=== PATIENT | male | born 1955 | race Caucasian/White ===

== ENCOUNTER → 2017-09-15 | Outpatient (CLI) | payer OTHER ==
[~2017-09-15] MED LIST: ADULT LOW DOSE81 MG PO; ALBUTEROL2.5 MG/0.5 INH; ASPIRIN325 PO; COREG3.125 MG PO; CYMBALTA30 MG PO; CYMBALTA60 MG PO; METHADONE HCL 110 M1 PO; METHADOSE10 M1 PO; METHADOSE10 MG PO; MOM PO; NEURONTIN 300300 M1 PO; NIACINOL500 MG PO; NORTRIPTYLINE H25 M3 PO; OXYCODONE HCL 55 MG PO; ROXICODONE15 M1 PO; ROXICODONE5 MG PO; SYMBICORT160 MCG/4. INH; TRILEPTAL150 MG PO; XANAX 0.25 MG0.25 MG PO; breathing treatment
--- NOTE | 2017-09-17 08:15 | PAINCON ---
[address] [address] PAIN MANAGEMENT CONSULTATION Name: RAISSA RANGEL [id number] Admission: 09/15/17 Attend Phys: Sukhi Whitman Discharge: Date of : 55 Report #: [id number] THIS REPORT FOR: //name// CC: Chris Millard The patient is a 62-year-old gentleman, priorly seen in pain clinic for neuropathic pain, status post left below knee amputation, being treated for chronic phantom sensation. He was last seen in the pain clinic on 07/21/2017, continued on baseline medication, increased methadone from 10 t.i.d. to q.i.d. We counseled regarding smoking cessation. Continue on co-analgesics including Cymbalta 30 mg 1 a day and gabapentin 300 mg 4 a day (1 in the morning, 1 at noon and 2 at night). He returns to pain clinic today noting medications have been providing sufficient analgesia to participate in activities of daily living. 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 We did check those medications. The only interaction is possible increased sedation with Seroquel. We discussed this today. Otherwise, the patient notes pain is a 2 on VAS, primarily phantom sensation, throbbing pain in the left lower extremity. No new complaints. PHYSICAL EXAMINATION: Shows 5 feet 9 inches, 198 pounds gentleman, BMI is 29.4 kilograms per meter squared. Blood pressure 154/81, pulse 112, respirations 16. Rises from chair using armrest, modestly antalgic gait, although he is getting better with his prosthesis. Some diffuse lumbar tenderness, no discrete trigger points noted. Stump is intact. We reviewed the fact that opiate medications are being used to provide analgesia adequate to support activities of daily living, not attempting to achieve a specific pain score on the 0-10 Visual Analog Scale. The current opiate medications are providing sufficient analgesia to allow the patient to participate in activities of daily living. The patient is not exhibiting any aberrant behavior suggestive of drug diversion. The patient is not having any adverse reactions to medications. The patient is not suffering from daytime somnolence or mental acuity changes. The patient is managing opiate-induced constipation with appropriate hllx-xcc-tjjbkkq agents and dietary considerations. The patient was counseled on concern for caution with operating a motor vehicle while using opiate medications. A physical exam was performed and the patient's functional status was evaluated. All patients with back pain were advised against the bed rest greater than 4 days and were advised to return to normal activities. Pain score assessment was noted and the treatment plan was reviewed with the patient. All current medications, both prescribed and OTC [place] [address] PAIN MANAGEMENT CONSULTATION Name: CLAIRERAISSA W Room: [facility]#: [id number] Admission: 09/15/17 Attend Phys: Sukhi Whitman Discharge: Date of : 55 Report #: [id number] electronic medical record. Tobacco screening was accomplished and smoking cessation was advised when indicated. BMI was noted and diet/exercise modification was recommended for all patients following outside normal parameters. I reviewed with the patient today their responsibilities to safeguard prescription medications, reviewed their responsibility to utilize medications only as prescribed by the physician. They are to seek and receive pain medications only from 1 physician group ( [facility]). They are to use 1 pharmacy and keep the clinic informed if they change pharmacies. Their responsibilities include making followup visits in a timely fashion and to avoid abrupt discontinuation of medication usage. Their responsibilities further include bringing their medications (bottles from the pharmacy with residual pills) to the visit for possible confirmation of pill counts and the patient understands it is their responsibility to submit to random drug screens to ensure both that the medications prescribed are present, and that no other controlled substances are present. All prescriptions provided today were generated electronically. ASSESSMENT: Chronic neuropathic pain, status post left below knee amputation, stable on baseline high risk complex medicines. RECOMMENDATIONS: 1. Buccal swab today. No aberrant behavior suggestive of drug diversion, simply complying with our opiate consent to treat contract. 2. Continue baseline medication and can change, methadone 10 mg q.i.d., I have taken the liberty of writing for 2 months of current medication. No other prescriptions were needed today. Follow up in 2 months for reevaluation, earlier if needed. <ELECTRONICALLY SIGNED> By: Marcel Millard DO 09/17/17 0815 0825 [id number] Millard DO /nt
== END ==
LOC: M.PC 02:03
DX: M79.2 Neuralgia and neuritis, unspecified (principal); Z89.519 Acquired absence of unspecified leg below knee; Z79.899 Other long term (current) drug therapy

== ENCOUNTER → 2017-11-10 | Outpatient (CLI) | payer OTHER ==
--- NOTE | 2017-11-11 10:21 | PAINCON ---
[address] [address] PAIN MANAGEMENT CONSULTATION Name: RAISSA RANGEL Room: [facility] Lambert#: [id number] Admission: 11/10/17 Attend Phys: Sukhi Whitman Discharge: Date of : 55 Report #: [id number] THIS REPORT FOR: //name// CC: Chris Millard DATE OF SERVICE: 11/10/2017 The patient is a 62-year-old gentleman being treated for neuropathic pain status post left below-knee amputation, chronic pain syndrome requiring complex medication management. Last seen in the pain clinic on 09/15/2017, continued on methadone 10 mg 4 times a day, Cymbalta 30 mg daily, gabapentin 300 mg 1 in the morning, 1 at noon, and 2 at night. The patient has increased this gradually up to about 5 a day. The patient returns to pain clinic today. He continued to smoke, was counseled regarding same. He is complaining that his gabapentin is a "2-3" prescription with higher cost. He did state that he looked at the formulary and noted that clonidine was listed "as exact same medication." I assured him that clonidine was absolutely not the comparable agent to gabapentin, gabapentin is a calcium channel membrane stabilizing agent. It is an anticonvulsant agent that we use for neuropathic pain. Clonazepam, however, is a benzodiazepine, acts on DAVID receptors and while it can lower seizure threshold but had absolutely nothing to do with neuropathic pain. I told him that would be very loathe to use concurrent benzodiazepines and opiate analgesics. We did again point out that nicotine use exacerbates atherosclerotic peripheral vascular disease as well as chronic axial back pain. Strongly recommend smoking cessation. PHYSICAL EXAMINATION: Shows a 62-year-old gentleman, BMI is approximately 29 kilograms per meter squared. Blood pressure 141/76, pulse 104, respirations 18. He is wearing a well-fitting left lower extremity prosthesis. Rises from chair using armrest. Has some subjective axial pain and some stump pain. Fortunately, no significant neuropathic pain at this time. Gait is modestly antalgic, generally tandem. We reviewed the fact that opiate medications are being used to provide analgesia adequate to support activities of daily living, not attempting to achieve a specific pain score on the 0-10 Visual Analog Scale. The current opiate medications are providing sufficient analgesia to allow the patient to participate in activities of daily living. The patient is not exhibiting any aberrant behavior suggestive of drug diversion. The patient is [place] [address] PAIN MANAGEMENT CONSULTATION Name: RAISSA RANGEL Sahil Room: [facility]#: [id number] Admission: 11/10/17 Attend Phys: Sukhi Whitman Discharge: Date of : 55 Report #: [id number] adverse reactions to medications. The patient is not suffering from daytime somnolence or mental acuity changes. The patient is managing opiate-induced constipation with appropriate lbwi-nlu-dteqycv agents and dietary considerations. The patient was counseled on concern for caution with operating a motor vehicle while using opiate medications. A physical exam was performed and the patient's functional status was evaluated. All patients with back pain were advised against the bed rest greater than 4 days and were advised to return to normal activities. Pain score assessment was noted and the treatment plan was reviewed with the patient. All current medications, both prescribed and OTC were reviewed and reconciled on the electronic medical record. Tobacco screening was accomplished and smoking cessation was advised when indicated. BMI was noted and diet/exercise modification was recommended for all patients following outside normal parameters. I reviewed with the patient today their responsibilities to safeguard prescription medications, reviewed their responsibility to utilize medications only as prescribed by the physician. They are to seek and receive pain medications only from 1 physician group ( [facility]). They are to use 1 pharmacy and keep the clinic informed if they change pharmacies. Their responsibilities include making followup visits in a timely fashion and to avoid abrupt discontinuation of medication usage. Their responsibilities further include bringing their medications (bottles from the pharmacy with residual pills) to the visit for possible confirmation of pill counts and the patient understands it is their responsibility to submit to random drug screens to ensure both that the medications prescribed are present, and that no other controlled substances are present. All prescriptions provided today were generated electronically. ASSESSMENT: Neuropathic pain, status post left below knee amputation, requiring complex medication management. RECOMMENDATIONS: 1. Smoking cessation. 2. Methadone 10 mg up to 4 a day, taken the liberty of writing for 2 months current medication. Continue Cymbalta 30 mg daily. Given cost concerns, I suggest the patient try and start to wean gabapentin, have taken the liberty of writing for 300 mg tablets, dispensed 120 tablets, currently takes 1 in the morning, 1 in noon and 2 at night. Suggest he drop 1 tablet every 5 days. If pain becomes problematic, we will go back to the last therapeutic dose. If, however, he is able to wean off of gabapentin, we will simply continue methadone and Cymbalta. The patient was discharged in good and stable condition. Follow up in 2 months [place] [address] PAIN MANAGEMENT CONSULTATION Name: RAISSA RANGEL Room: [facility]#: [id number] Admission: 11/10/17 Attend Phys: Sukhi Whitman Discharge: Date of : 55 Report #: [id number] Patient did return to the pain clinic later in the day; it turns out that while he has consistently told me that he was taking his methadone four times a day, he has in fact been taking it "as needed" meaning that he has been utilizing MORE than four tablet per day; in fact he has been asking for his Rx to be released "early" per the pharmacist now the last FIVE times. Today he tells me that he is out of methadone and that the pharmacy will not release the Rx for two days. I strongly admonished the patient that he MUST take the medications as directed! I did provide the patient with an Rx for clonidine, 0.1 mg to be taken bid for two days to help attenuate any opiate withdrawal symptoms. Going forward, I will provide the patient with #112 methadone tablets for exactly 4 weeks, not allowing patient to have any latitude for more aggressive use of this agent. <ELECTRONICALLY SIGNED> By: Marcel Millard DO 11/11/17 1021 1243 [id number] Millard DO /nt
== END ==
LOC: M.PC 03:38
DX: G89.4 Chronic pain syndrome (principal); M79.2 Neuralgia and neuritis, unspecified; Z79.899 Other long term (current) drug therapy; Z87.891 Personal history of nicotine dependence; Z89.512 Acquired absence of left leg below knee

== ENCOUNTER → 2018-01-05 | Outpatient (CLI) | payer OTHER ==
--- NOTE | 2018-01-06 09:37 | PAINCON ---
[address] [address] PAIN MANAGEMENT CONSULTATION Name: RAISSA RANGEL Room: [facility] CT Lambert#: [id number] Admission: 01/05/18 Attend Phys: Sukhi Whitman Discharge: Date of : 55 Report #: [id number] THIS REPORT FOR: //name// CC: Chris Millard DATE OF SERVICE: 01/05/2018 The patient is a 62-year-old gentleman treated for phantom limb pain status post left below knee amputation, neuropathic pain requiring complex medication management. Last seen in the pain clinic 11/10/2017. The patient returns to pain clinic today. We had a moderately prolonged visit today reviewing concerning issues. Last visit after the patient left, I was informed by the pharmacist that he has requested early release of his medications for the last 5 times. While he told me he was taking his medication regularly q.i.d., it turns out he was actually using his methadone more as a p.r.n. medication and was actually running out on occasion. The patient does return to the pain clinic today. Was seen for approximately a 25-minute visit, greater than 50% of time spent reviewing therapeutic issues, concerns and discussion about opiate-induced hyperalgesia, constipation and concerns for supratherapeutic dosing, the patient currently is taking 40 mg of methadone roughly equivalent to 160 mg morphine at a minimum. The patient does note he has been cautious to take his medication not more than q.i.d. and in fact brings with him today his pill jar for a pill count and he is appropriately timely. PHYSICAL EXAMINATION: Reveals a 5-foot 9-inch, 194-pound gentleman, BMI is 28.5 kilograms per meter squared. Blood pressure 158/84, pulse 98, respirations are 16. Alert and oriented to person, place and time, judged to be a reasonable historian, wearing a well-fitting prosthesis. Gait is generally tandem. Rates his pain a 3 on VAS. He does report that he had fallen 2 weeks ago. States he simply tripped over a rug in their apartment. Physical exam further notes he is alert and oriented to person, place and time, judged to be a reasonable historian. Cervical range of motion is good. Upper extremity strength is preserved. Some diffuse back tenderness, no discrete trigger point was noted. The patient is currently taking Cymbalta 30 mg a day. His notes that he does get anxious without this medication. He has continued to take gabapentin 300 mg. We talked about weaning this due to cost concerns, but the patient has continued taking 1 tablet in the morning, 1 at noon, and 2 at night. He thinks it [place] [address] PAIN MANAGEMENT CONSULTATION Name: RAISSA RANGEL Room: [facility]#: [id number] Admission: 01/05/18 Attend Phys: Sukhi Whitman Discharge: Date of : 55 Report #: [id number] We talked at length today about phantom pain, opiate-induced hyperalgesia and concern for aggressive titration of opiate. I pointed out that we will try and wean the patient down to the CDC recommendation of 90 mg or less morphine equivalent. To this end, we have elected to decrease methadone from q.i.d. to t.i.d. With a 25% decrease in opiate load, I do not think he should have opiate-induced withdrawal symptoms. We can phone in clonidine 0.1 at bedtime if he is having any anxiety, tachycardia, diaphoresis. I have taken the liberty of writing 2 months of this medication, follow up at that time. We will continue Cymbalta and gabapentin unchanged. Next visit, we may consider dropping to 25 mg of methadone. I did inform the patient that I will be leaving in March. We will endeavor to find another willing provider to manage his chronic pain concerns. Today, a buccal swab was accomplished. It should be positive for methadone as the sole opiate. The patient was counseled again at great lengths about smoking cessation. We talked about the fact that it can exacerbate chronic pain issues, may have been contributory to his atherosclerotic peripheral vascular disease and amputation. Is indicative of habituative personality as well. Discharged in good and stable condition after a 25+ minute visit. <ELECTRONICALLY SIGNED> By: Marecl Millard DO 01/06/18 0937 1400 190Marcel Millard DO /nt
== END ==
LOC: M.PC 04:39
DX: M79.2 Neuralgia and neuritis, unspecified (principal); Z89.512 Acquired absence of left leg below knee; Z79.899 Other long term (current) drug therapy

== ENCOUNTER → 2018-03-09 | Outpatient (CLI) | payer OTHER ==
--- NOTE | 2018-03-10 07:27 | PAINCON ---
[address] [address] PAIN MANAGEMENT CONSULTATION Name: RAISSA RANGEL Room: [facility] Petra#: [id number] Admission: 03/09/18 Attend Phys: Sukhi Whitman Discharge: Date of : 55 Report #: [id number] THIS REPORT FOR: //name// CC: Chris Leos DATE OF SERVICE: 03/09/2018 The patient is a 62-year-old gentleman being treated for left lower extremity neuropathic pain, status post left below knee amputation, phantom limb sensation requiring complex medication management. The patient returns to pain clinic today, last visit was 01/05/2018. Random drug screen at that time was positive for methadone, gabapentin and nicotine. No aberrant findings were noted. We started the patient on Cymbalta, which has helped some with some chronic situational anxiety and chronic pain. He uses gabapentin 300 mg 1 in the morning, 1 at noon and 2 at night (1200 mg daily dose) with some efficacy of neuropathic pain. We had weaned methadone from 4 to 3 a day, 10 mg 3 times a day with no p.r.n. medication. The patient notes that he is doing well with current medication. Rates his pain a 2-3 on a VAS. States fairly sedentary life. He does have significant COPD, shortness of breath with even getting up to make the bed. He still continues to smoke and was counseled regarding same. PHYSICAL EXAMINATION: Otherwise unchanged, 5 feet 9 inches, approximately 195 pounds gentleman, BMI is around 28 kilograms per meter squared. Blood pressure 141/75, pulse 92, respirations 16. Cranial nerves 2-12 are grossly intact. Pupils equal, react to light and accommodation, somewhat pinpoint. Extraocular muscles are intact. He is alert and oriented to person, place and time, judged to be a reasonable historian. No nystagmus is noted with lateral gaze deviation. Rises from chair using armrest. Gait is fairly tandem. Considering the left lower extremity prosthesis, he uses a cane in his right hand. Balance is good. Walking forward. He does have poor proprioception and balance if he tries to take a step backwards. He has had some falls when stepping backwards. The patient is having no problems with daytime somnolence or mental acuity changes. Again, he is fairly sedentary, primarily because of COPD. I think he has some social isolation. He states they have one car and his takes it to work and he is "stuck in the apartment." He states he does struggle a little with constipation, he states he has since he was a child. Today, we had a prolonged talk about using stool softeners, I have [place] [address] PAIN MANAGEMENT CONSULTATION Name: RAISSA RANGEL Room: [facility]#: [id number] Admission: 03/09/18 Attend Phys: Sukhi Whitman Discharge: Date of : 55 Report #: [id number] before. He uses milk of magnesia about every 3-4 days. I suggested that using a bowel stimulant rather than a daily stool softener/bulk-forming agent in patients who use chronic opiates is somewhat misguided. Concerned that he is "training" his bowel to have peristalsis only when stimulated with a properistaltic agent such as milk of magnesia. I again discussed at length opiate-induced constipation and need to use a bulk-forming agent to try and keep more fluid in the stool given the prolonged transit time caused by the opiate. Ultimately, I think the patient understood this. I did discuss today that I will be leaving the practice area. Unfortunately, Dr. Dean cannot see all of my patients. I will ask him to follow up with Dr. Mariano. He has been stable on methadone 10 mg t.i.d. for quite some time. If Dr. Mariano is comfortable writing for this agent, that would certainly be a reasonable medication for him to continue. We could see him perhaps once a year simply to evaluate appropriateness of current medication. If, however, Dr. Mariano is uncomfortable with this medication, we would appreciate his input in helping to refer the patient to another pain physician managing chronic pain concerns. Thank you for allowing me to participate in this patient's care. He was seen for prolonged visit today, approximately 25 minutes spent counseling the patient, reviewing opiate-induced constipation issues, discussing need for smoking cessation, encouraging daily activity including even a short walk in the morning hours before the heat of day. <ELECTRONICALLY SIGNED> By: Marcel Millard DO 03/10/18 0727 1336 204Marcel Millard DO /nt
== END ==
LOC: M.PC 03-02 10:10
DX: M79.2 Neuralgia and neuritis, unspecified (principal); G89.29 Other chronic pain; F41.9 Anxiety disorder, unspecified; Z79.899 Other long term (current) drug therapy

== ENCOUNTER → 2018-05-24 | Outpatient (CLI) | payer OTHER | LOC: M.ULTRA 10:30 | DX: B17.10 Acute hepatitis C without hepatic coma (principal); R79.89 Other specified abnormal findings of blood chemistry; R74.8 Abnormal levels of other serum enzymes; J44.9 Chronic obstructive pulmonary disease, unspecified ==

== ENCOUNTER 2018-08-12 15:06 | Emergency (ER) | payer OTHER ==
[~2018-08-12] VITALS: Ht 172.7 cm; Wt 90.7 kg
[2018-08-12] MEDS ORDERED: TRAZODONE HCL50 MG PO (15:19)
[2018-08-12 15:37] LABS: ABSOLUTE BASOPHILS 0.1 thou/uL (0.0-0.2); ABSOLUTE EOSINOPHILS 0.1 thou/uL (0.0-0.7); ABSOLUTE MONOCYTES 0.9 thou/uL (0.0-1.2); ABSOLUTE NEUTROPHILS 5.7 thou/uL (1.6-8.1); BASOPHILS 0.9 %; EOSINOPHILS 0.9 %; HEMATOCRIT 51.3 % (42.0-52.0); LYMPHOCYTES 30.3 %; MCH 31.7 pg (26.0-34.0); MCHC 33.2 g/dL (28.0-37.0); MCV 95.6 fL (80.0-100.0); MONOCYTES 9.2 %; MPV 10.6 fl. (7.2-11.1); NUCLEATED RBCS 0 /100WBC; PLATELET COUNT* 179 thou/uL (150-400); POLYS 58.7 %; RBC 5.36 mil/uL (4.50-6.00); RDW-CV 13.4 % (10.5-14.5); WBC 9.7 thou/uL (4.0-11.0)
[2018-08-12 15:47] LABS: ANION GAP 8 mmol/L (7-16); BUN 8 mg/dL (7-18); CALCIUM 8.9 mg/dL (8.5-10.1); CHLORIDE 105 mmol/L (98-107); CO2 29 mmol/L (21-32); CREATININE 0.9 mg/dL (0.6-1.3); GLUCOSE 136 mg/dL (70-99); POTASSIUM 3.7 mmol/L (3.5-5.1); SODIUM 142 mmol/L (136-145)
[2018-08-12 16:02] LABS: ALBUMIN 3.7 g/dL (3.4-5.0); ALKALINE PHOSPHATASE 59 U/L (46-116); SGOT 70 U/L (15-37); SGPT 109 U/L (30-65); TOTAL BILIRUBIN 0.6 mg/dL (<0.1-1.0); TOTAL PROTEIN 7.4 g/dL (6.4-8.2); TROPONIN-I LEVEL <0.06 ng/mL (<0.06)
[2018-08-12 17:11] LABS: URINE BILIRUBIN NEGATIVE (Negative); URINE BLOOD NEGATIVE (Negative); URINE CLARITY CLEAR; URINE COLOR YELLOW; URINE GLUCOSE-RANDOM NEGATIVE (Negative); URINE KETONES NEGATIVE (Negative); URINE LEUKOCYTES-REFLEX NEGATIVE (Negative); URINE NITRITE-REFLEX NEGATIVE (Negative); URINE PROTEIN NEGATIVE (Negative); URINE SPECIFIC GRAVITY <= 1.005 (1.005-1.030)
[2018-08-12 17:18] LABS: AMP/METHAMP Negative (Negative); BARBITURATES Negative (Negative); BENZODIAZEPINES Negative (Negative); COCAINE Negative (Negative); METHADONE POSITIVE (Negative); OPIATES Negative (Negative); PCP Negative (Negative); THC Negative (Negative)
[2018-08-12] MEDS ORDERED: ATIVAN0.5 MG PO (17:29)
[2018-08-12 17:51] VITALS: BP 132/75
--- NOTE | 2018-08-14 15:33 | EKG ---
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
== END 2018-08-12 17:52 | disposition home or self-care (01) ==
LOC: M.ERS 15:06
PROVIDERS: Nurse Practitioner Family
DX: F41.9 Anxiety disorder, unspecified (principal); G47.00 Insomnia, unspecified; T43.215A Adverse effect of selective serotonin and norepinephrine reuptake inhibitors, initial encounter; R03.0 Elevated blood-pressure reading, without diagnosis of hypertension; R51 Headache; K74.60 Unspecified cirrhosis of liver; J43.9 Emphysema, unspecified; I73.9 Peripheral vascular disease, unspecified; F17.210 Nicotine dependence, cigarettes, uncomplicated; Z79.899 Other long term (current) drug therapy; Z86.19 Personal history of other infectious and parasitic diseases; Y92.89 Other specified places as the place of occurrence of the external cause

== ENCOUNTER → 2019-01-09 | Outpatient (CLI) | payer OTHER ==
[~2019-01-09] MED LIST changes: +ATIVAN0.5 MG PO; +TRAZODONE HCL50 MG PO
== END ==
LOC: M.ULTRA 09:00
DX: K82.8 Other specified diseases of gallbladder (principal); K74.60 Unspecified cirrhosis of liver

== ENCOUNTER → 2019-07-13 | Outpatient (CLI) | payer OTHER | LOC: M.CT 07-12 13:00 | DX: K74.60 Unspecified cirrhosis of liver (principal); K76.0 Fatty (change of) liver, not elsewhere classified; B18.2 Chronic viral hepatitis C; J98.11 Atelectasis; K76.89 Other specified diseases of liver ==